=== PATIENT | male | born 1965 | race Caucasian/White ===

== ENCOUNTER 2019-04-29 14:28 | Emergency (ER) | payer MEDICAID ==
[~2019-04-29] VITALS: Ht 167.6 cm; Wt 71.0 kg
[2019-04-29 14:38] VITALS: BP 124/76
[2019-04-29] MEDS ORDERED: dexamethasone 4mg/ml inj IM ONE (15:05)
[2019-04-29] MEDS ORDERED: diphenhydrAMINE 25mg capsule PO ONE (15:05)
[2019-04-29] MEDS ORDERED: cephalexin 250mg capsule PO ONE (15:05)
[2019-04-29] MEDS ORDERED: triamcinolone acetonide 40mg/ml inj IM ONE (15:05)
[2019-04-29] MEDS ORDERED: PERM60CR4 TOP (15:08)
[2019-04-29] MEDS ORDERED: CEPH250T PO (15:09)
[2019-04-29] MEDS ORDERED: DIPH25CA83 PO (15:09)
[2019-04-29] MEDS ORDERED: KEN0.1O TP (15:09)
== END 2019-04-29 15:42 | disposition home or self-care (01) ==
LOC: ER 14:29
DX: R21 Rash and other nonspecific skin eruption (principal); Z79.899 Other long term (current) drug therapy
CPT/HCPCS: 96372; 99283; J1100; J3301; Q0163

== ENCOUNTER 2022-01-26 09:00 | Emergency (ER) | payer MEDICAID ==
[~2022-01-26] VITALS: Ht 167.6 cm; Wt 70.0 kg
[~2022-01-26 09:00] MED LIST: DIPH25CA83 PO; PERM60CR4 TOP
[2022-01-26 09:18] VITALS: BP 131/88
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
--- NOTE | 2022-01-26 11:12 | NUR ---
REPORT NUMBER ON PTS FORM [phone]
[2022-01-26] MEDS ORDERED: iohexol 350MG/ML 100ml bottle IV ONE (11:24)
[2022-01-26] MEDS ORDERED: ONDA4TAB12 PO (12:20)
== END 2022-01-26 13:04 | disposition home or self-care (01) ==
LOC: EEVIPCON 09:01 → ER 09:01
DX: S00.03XA Contusion of scalp, initial encounter (principal); Z88.0 Allergy status to penicillin; Y04.8XXA Assault by other bodily force, initial encounter; Y93.89 Activity, other specified; Y92.89 Other specified places as the place of occurrence of the external cause; Y99.8 Other external cause status
CPT/HCPCS: 70496; 70498; 93005; 99285; J3490; L0172; Q9967